=== PATIENT | female | born 1990 | race Caucasian/White ===

== ENCOUNTER 2017-04-12 09:04 | Emergency (ER) | payer OTHER ==
[2017-04-12 09:07] VITALS: BP 139/63; PULSE 90; TEMP 97.8; BMI 35.4
[2017-04-12] MEDS ORDERED: OXYCODONE/APAP 5/325MG COMBO TABLET PO ONE (09:25)
[2017-04-12] MEDS ORDERED: ONDANSETRON 4 MG TABLET PO ONE (09:26)
[2017-04-12] MEDS ORDERED: OXYCODONE/APAP 5/325MG COMBO TABLET ONE (09:27)
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
== END 2017-04-12 10:41 | disposition home or self-care (01) ==
LOC: JER 09:04
DX: T24.101A Burn of first degree of unspecified site of right lower limb, except ankle and foot, initial encounter (principal); T31.0 Burns involving less than 10% of body surface; Y27.2XXA Contact with hot fluids, undetermined intent, initial encounter; Y93.9 Activity, unspecified; Y92.9 Unspecified place or not applicable; F99 Mental disorder, not otherwise specified
CPT/HCPCS: 99281-25

== ENCOUNTER 2023-01-19 18:17 | Observation (INO) | payer OTHER ==
[2023-01-19 20:15] LABS: BASO % 0.6 % (0-2.0); EOS % 1.5 % (0-4.5); HEMOGLOBIN 13.4 GM/dL (10.7-15.3); LYMPH % 34.6 % (8-40); MCH 30.6 pg (25.7-33.7); MCHC 35.2 g/dl (32.0-36.0); MEAN CELL VOLUME 86.9 fl (80-96); MEAN PLT VOLUME 7.4 fl (7.5-11.1); MONO % 9.7 % (3.8-10.2); NEUT % 53.6 % (42.8-82.8); PLATELET COUNT 358 10^3/uL (134-434); RBC 4.37 M/mm3 (3.60-5.2); WHITE BLOOD COUNT 8.9 K/mm3 (4.0-10.0)
[2023-01-19 20:29] LABS: BLOOD UREA NITROGEN 15.5 mg/dL (7-18)
[2023-01-19 20:32] LABS: CREATININE 0.9 mg/dL (0.55-1.3)
[2023-01-19 20:34] LABS: BILIRUBIN,TOTAL 1.1 mg/dL (0.2-1); TOT PROT 7.3 g/dl (6.4-8.2)
[2023-01-19] MEDS ORDERED: diazePAM 5 MG TABLET PO ONE (22:01)
[2023-01-19] MEDS ORDERED: DEXAMETHASONE SOD PHOSPHATE 10 MG/1 ML VIAL IVPUSH ONE (22:01)
[2023-01-19] MEDS ORDERED: KETOROLAC TROMETHAMINE 15 MG/ML VIAL IVPUSH ONE (22:01)
[2023-01-19] MEDS ORDERED: KETOROLAC TROMETHAMINE 15 MG/ML VIAL ONE (22:08)
[2023-01-19] MEDS ORDERED: diazePAM 5 MG TABLET ONE (22:08)
[2023-01-19] MEDS ORDERED: DEXAMETHASONE SOD PHOSPHATE 10 MG/1 ML VIAL ONE (22:09)
[2023-01-20] MEDS ORDERED: KETOROLAC TROMETHAMINE 15 MG/ML VIAL IVPUSH PRN (01:45)
[2023-01-20] MEDS ORDERED: ASPIRIN 81 MG CHEWABLE TABLETS PO ONE ×2 (01:49→03:58)
[2023-01-20] MEDS ORDERED: ACETAMINOPHEN 1000 MG/100 ML BAG IVPB PRN (01:51)
[2023-01-20] MEDS ORDERED: MAG HYDROX/AL HYDROX/SIMETH 30 ML UNIT-DOSE CUP PO PRN (02:24)
[2023-01-20] MEDS ORDERED: METHOCARBAMOL 500 MG TABLET PO PRN (02:51)
[2023-01-20 06:41] VITALS: BMI 34.8
[2023-01-20] MEDS ORDERED: VANCOMYCIN 1,000 MG in DEXTROSE 5%-WATER - 250 ML IVPB ONE (08:25)
[2023-01-20] MEDS ORDERED: PIPERACILLIN/TAZOB 2.25 GM 2.25 GM in DEXTROSE 5%-WATER - 50 ML IVPB ONE (08:25)
[2023-01-20 08:49] LABS: HEMATOCRIT 37.4 % (32.4-45.2); HEMOGLOBIN 13.4 GM/dL (10.7-15.3); MCH 30.7 pg (25.7-33.7); MCHC 35.9 g/dl (32.0-36.0); MEAN CELL VOLUME 85.5 fl (80-96); MEAN PLT VOLUME 7.1 fl (7.5-11.1); PLATELET COUNT 340 10^3/uL (134-434); RBC 4.37 M/mm3 (3.60-5.2); RDW 12.7 % (11.6-15.6); WHITE BLOOD COUNT 9.9 K/mm3 (4.0-10.0)
[2023-01-20 09:17] LABS: CALCIUM 9.1 mg/dL (8.5-10.1)
[2023-01-20 09:18] LABS: BLOOD UREA NITROGEN 16.9 mg/dL (7-18)
[2023-01-20 09:21] LABS: CREATININE 0.9 mg/dL (0.55-1.3); PHOSPHOROUS 3.4 mg/dL (2.5-4.9)
[2023-01-20] MEDS ORDERED: ACETAMINOPHEN 500 MG TABLET (FP) PO PRN (14:45)
[2023-01-20 15:58] VITALS: RESP 18
[2023-01-21 08:16] LABS: BASO % 0.5 % (0-2.0); EOS % 1.6 % (0-4.5); HEMATOCRIT 35.1 % (32.4-45.2); HEMOGLOBIN 12.5 GM/dL (10.7-15.3); LYMPH % 44.4 % (8-40); MCH 30.7 pg (25.7-33.7); MCHC 35.7 g/dl (32.0-36.0); MEAN PLT VOLUME 7.3 fl (7.5-11.1); NEUT % 43.5 % (42.8-82.8); PLATELET COUNT 298 10^3/uL (134-434); RBC 4.08 M/mm3 (3.60-5.2); RDW 12.9 % (11.6-15.6); WHITE BLOOD COUNT 8.9 K/mm3 (4.0-10.0)
[2023-01-21 08:23] LABS: INR 1.1 (0.83-1.09); PROTHROMBIN TIME (PATIENT) 12.7 SEC (9.7-13.0)
[2023-01-21 08:26] LABS: ACTIVATED PTT 30.5 SECONDS (25.2-36.5)
[2023-01-21 08:42] LABS: BLOOD UREA NITROGEN 19.1 mg/dL (7-18); CALCIUM 8.5 mg/dL (8.5-10.1)
[2023-01-21 08:44] LABS: CREATININE 0.9 mg/dL (0.55-1.3)
[2023-01-21 08:45] LABS: PHOSPHOROUS 3.9 mg/dL (2.5-4.9)
[2023-01-21 11:11] VITALS: BP 114/80; PULSE 90; TEMP 97.9
== END 2023-01-21 15:20 | disposition home or self-care (01) ==
LOC: JER 18:17 → JERBED 01-20 00:06 → J4W 01-20 03:45
PROVIDERS: ADMIT Internal Medicine; ATTEND Internal Medicine
PROC: 3E033GC Introduction of Other Therapeutic Substance into Peripheral Vein, Percutaneous Approach (ICD-10-PCS; principal; 2023-01-20)
PROC: 3E0333Z Introduction of Anti-inflammatory into Peripheral Vein, Percutaneous Approach (ICD-10-PCS; 2023-01-20)
DX: M62.838 Other muscle spasm (principal); R20.0 Anesthesia of skin; K21.9 Gastro-esophageal reflux disease without esophagitis; F90.9 Attention-deficit hyperactivity disorder, unspecified type
CPT/HCPCS: 0241U-QW; 36415; 70450-TC; 70553-TC; 71046-TC-FY; 72125-TC; 80048; 80053; 83735; 84100; 84484; 84703; 85025; 85027; 85610; 85730; 93005; 93010; 97116-GP; 97161-GP; 99285-25; G0378; J1100